=== PATIENT | male | born 1985 | race Caucasian/White ===

== ENCOUNTER 2023-11-04 16:09 | Emergency (ER) | payer OTHER ==
[~2023-11-04] VITALS: Ht 172.7 cm; Wt 96.6 kg
[2023-11-04 16:59] VITALS: BP 144/81; PULSE 79; RESP 18; TEMP 98.6; O2SAT 97
[2023-11-04] MEDS ORDERED: IBUP-2213 PO (19:05)
[2023-11-04] MEDS ORDERED: BACI-418 TP (19:05)
[2023-11-04] MEDS: BACITRACIN OINT 500 UNITS/GM PKT TP ONE (19:13)
[2023-11-04] MEDS: LIDOCAINE MPF 1% 10 MG/ML VIAL INJ ONE (19:14)
[2023-11-04 19:17] VITALS: BP 127/78; PULSE 79; RESP 18; TEMP 37.00296; O2SAT 97
== END 2023-11-04 19:17 | disposition home or self-care (01) ==
LOC: MED 16:09
DX: S61.213A Laceration without foreign body of left middle finger without damage to nail, initial encounter (principal); Z79.899 Other long term (current) drug therapy; W27.0XXA Contact with workbench tool, initial encounter; Y93.89 Activity, other specified; Y92.89 Other specified places as the place of occurrence of the external cause; Y99.8 Other external cause status
CPT/HCPCS: 12001; 90471; 90715; 99283; J2001

== ENCOUNTER 2023-11-06 19:53 | Emergency (ER) | payer OTHER ==
[~2023-11-06] VITALS: Ht 172.7 cm; Wt 95.3 kg
[~2023-11-06 19:53] MED LIST: BACI-418 TP; IBUP-2213 PO
[2023-11-06 19:55] VITALS: BP 127/68; PULSE 66; RESP 16; TEMP 97.3; O2SAT 100
== END 2023-11-06 21:16 | disposition home or self-care (01) ==
LOC: MED 19:53
DX: S61.213D Laceration without foreign body of left middle finger without damage to nail, subsequent encounter (principal); Z48.00 Encounter for change or removal of nonsurgical wound dressing; Z79.899 Other long term (current) drug therapy; X58.XXXD Exposure to other specified factors, subsequent encounter
CPT/HCPCS: 99281

== ENCOUNTER 2023-11-21 14:12 | Emergency (ER) | payer OTHER ==
[~2023-11-21] VITALS: Ht 172.7 cm; Wt 95.3 kg
[2023-11-21 14:32] VITALS: BP 124/88; PULSE 59; RESP 18; TEMP 98.4; O2SAT 98
[2023-11-21 15:20] VITALS: BP 124/88; PULSE 59; RESP 18; TEMP 98.4; O2SAT 98
== END 2023-11-21 15:20 | disposition home or self-care (01) ==
LOC: MED 14:12
DX: S61.213D Laceration without foreign body of left middle finger without damage to nail, subsequent encounter (principal); Z48.00 Encounter for change or removal of nonsurgical wound dressing; Z79.1 Long term (current) use of non-steroidal anti-inflammatories (NSAID); Z79.2 Long term (current) use of antibiotics; X58.XXXD Exposure to other specified factors, subsequent encounter
CPT/HCPCS: 99281